=== PATIENT | male | born 1955 | race Two or more races ===

== ENCOUNTER 2017-09-23 16:22 | Outpatient (CLI) | payer OTHER | END 2017-09-23 17:00 | disposition home or self-care (01) | LOC: RAD 16:22 | DX: M75.32 Calcific tendinitis of left shoulder (principal); M75.31 Calcific tendinitis of right shoulder ==

== ENCOUNTER 2018-08-11 14:11 | Outpatient (CLI) | payer OTHER | END 2018-08-11 16:00 | disposition home or self-care (01) | LOC: SONOGRAMA 14:11 | DX: E04.1 Nontoxic single thyroid nodule (principal) ==

== ENCOUNTER → 2019-05-08 17:18 | Outpatient (CLI) | payer OTHER | END | disposition home or self-care (01) | LOC: RAD 17:18 | DX: M25.571 Pain in right ankle and joints of right foot (principal) ==

== ENCOUNTER 2021-09-24 11:38 | Outpatient (CLI) | payer OTHER | END 2021-09-24 11:40 | disposition home or self-care (01) | LOC: TOM 11:38 | DX: R10.9 Unspecified abdominal pain (principal); R10.2 Pelvic and perineal pain; K57.90 Diverticulosis of intestine, part unspecified, without perforation or abscess without bleeding ==

== ENCOUNTER 2021-10-03 12:18 | Outpatient (CLI) | payer OTHER | END 2021-10-03 12:22 | disposition home or self-care (01) | LOC: LAB 12:18 | PROVIDERS: ATTEND Radiology Diagnostic Radiology | DX: R10.9 Unspecified abdominal pain (principal) ==

== ENCOUNTER 2023-03-02 13:46 | Outpatient (CLI) | payer OTHER | END 2023-03-02 14:14 | disposition home or self-care (01) | LOC: RAD 13:46 | DX: I13.10 Hypertensive heart and chronic kidney disease without heart failure, with stage 1 through stage 4 chronic kidney disease, or unspecified chronic kidney disease (principal) ==

== ENCOUNTER 2023-04-08 11:13 | Outpatient (CLI) | payer OTHER | END 2023-04-08 11:25 | disposition home or self-care (01) | LOC: TOM 11:13 | PROVIDERS: ATTEND Internal Medicine Nephrology | DX: N28.1 Cyst of kidney, acquired (principal); R10.31 Right lower quadrant pain; R55 Syncope and collapse | CPT/HCPCS: 70450; 74177; Q9965 ==

== ENCOUNTER 2023-04-16 09:12 | Outpatient (CLI) | payer OTHER | END 2023-04-16 09:13 | disposition home or self-care (01) | LOC: NUCLEAR 09:12 | PROVIDERS: ATTEND Internal Medicine Nephrology | DX: I65.23 Occlusion and stenosis of bilateral carotid arteries (principal); R55 Syncope and collapse ==

== ENCOUNTER 2023-08-10 13:30 | Emergency (ER) | payer OTHER ==
[~2023-08-10] VITALS: Ht 172.7 cm; Wt 88.5 kg
[2023-08-10] MEDS ORDERED: METFORMIN HCL500 M4 PO (13:42)
[2023-08-10] MEDS ORDERED: ROSUVASTATIN CA10 MG PO (13:42)
[2023-08-10] MEDS ORDERED: ADULT LOW DOSE81 M1 PO (13:43)
[2023-08-10] MEDS ORDERED: TADALAFIL5 MG PO (13:43)
[2023-08-10] MEDS ORDERED: METOPROLOL SUCC50 MG PO (13:43)
[2023-08-10] MEDS ORDERED: AMLODIPINE BESYL5 MG PO (13:45)
[2023-08-10] MEDS ORDERED: XIGDUO XR 10 M1 EAC1 PO (13:45)
[2023-08-10] MEDS ORDERED: FAMOtidine 10 MG/ML (4ML VIAL) IV STA (14:34)
[2023-08-10] MEDS ORDERED: ONDANSETRON HCL 2 MG/ML VIAL IV ONE (14:45)
[2023-08-10 15:24] LABS: HEMATOCRIT 51.4 % (39.0-48.0); HEMOGLOBIN 18.1 g/dL (13-16.00); MEAN CELL VOLUME 85.6 fL (80.0-100.00); MEAN CORPUSCULAR HEMOGLOBIN 30.2 pg (27.00-32.0); MEAN CORPUSCULAR HGB CONC 35.3 g/dl (32.0-36.0); PLATELET COUNT 197 K/uL (150-450); RED BLOOD COUNT 6.01 M/uL (4.00-6.00); RED CELL DISTRIBUTION WIDTH 13.8 % (11.5-14.5)
[2023-08-10 15:53] LABS: ALBUMIN 4.8 gm/dL (3.4-5.0); BILIRUBIN TOTAL 0.89 mg/dL (0.3-1.2); CALCIUM 10.9 mg/dL (8.5-10.1); CREATININE SERUM 1.39 mg/dL (0.70-1.30); GFR 50.52; POTASSIUM 4.47 mEq/L (3.5-5.1)
[2023-08-10 16:05] LABS: BILIRUBIN,CONJUGATED 0.19 mg/dL (0.0-0.2); BILIRUBIN,UNCONJUGATED 0.7 mg/dL (0.0-0.6)
[2023-08-10 16:20] LABS: URINE APPEARANCE Clear; URINE BILIRRUBIN Negative (NEGATIVE); URINE BLOOD Negative; URINE COLOR Yellow; URINE LEUKOCYTE Negative; URINE NITRATE Negative; URINE PROTEIN 30 (NEGATIVE)
[2023-08-10 16:24] LABS: URINE EPITHELIAL CELLS 4.6 uL (0.0-38.8); URINE RBC 7.9 uL (0.0-20.8); URINE WBC 1.8 uL (0.0-23.2)
[2023-08-10 16:29] LABS: URINE BACTERIA 3.7 uL (0.0-1933); URINE GLUCOSE >=1000 MG/DL (NEGATIVE)
== END 2023-08-10 19:03 | disposition home or self-care (01) ==
LOC: ER 13:30
PROVIDERS: General Practice
DX: K29.70 Gastritis, unspecified, without bleeding (principal); Z20.822 Contact with and (suspected) exposure to COVID-19
CPT/HCPCS: 36415; 93005; 96365; 99282; J2405; J3490